=== PATIENT | male | born 1965 | race Caucasian/White ===

== ENCOUNTER 2018-12-26 07:10 | Observation (INO) | payer BC ==
[2018-12-26] MEDS ORDERED: ONDANSETRON HCL INJ/PF 4 MG/2 ML SDV IV ONE (08:16)
[2018-12-26] MEDS ORDERED: NORMAL SALINE 1000 ML 1,000 ML IV ONE (08:16)
[2018-12-26] MEDS ORDERED: MORPHINE SULFATE 10 MG/ML INJ IV ONE (08:16)
[2018-12-26 08:44] LABS: ABSOLUTE EOSINOPHILS # (AUTO) 0.1 10^3/uL (0.0-0.6); ABSOLUTE MONOCYTES (AUTO) 0.6 10^3/uL (0.1-1.4); ABSOLUTE NEUT (AUTO) 9.3 10^3/uL (1.7-8.2); BASOPHILS % (AUTO) 0.4 % (0-2); EOSINOPHILS % (AUTO) 0.5 % (0-6); HEMOGLOBIN 16.2 g/dL (13.5-17.0); LYMPHOCYTES % (AUTO) 9.4 % (13-45); MEAN CORPUSCULAR HEMOGLOBIN 30.5 pg (27.0-33.4); MEAN CORPUSCULAR HGB CONC 34.4 g/dL (32.0-36.0); MEAN CORPUSCULAR VOLUME 89 fl (80-97); PLATELET COUNT 232 10^3/uL (150-450); RED BLOOD COUNT 5.29 10^6/uL (4.35-5.55); RED CELL DISTRIBUTION WIDTH 14.3 % (11.5-14.0); SEGMENTED NEUTROPHILS % (AUTO) 84.7 % (42-78); TOTAL CELLS COUNTED % (AUTO) 100 %
[2018-12-26] MEDS ORDERED: ETOMIDATE INJ/PF 20 MG/10 ML SDV IV ONE ×2 (08:55→09:15)
[2018-12-26] MEDS ORDERED: ONDANSETRON HCL INJ/PF 4 MG/2 ML SDV IV PRN ×2 (09:11→12:20)
[2018-12-26] MEDS ORDERED: MORPHINE SULFATE 10 MG/ML INJ IV PRN (09:11)
[2018-12-26 09:13] LABS: ALANINE AMINOTRANSFERASE 50 U/L (21-72); ALBUMIN 4.5 g/dL (3.5-5.0); ALKALINE PHOSPHATASE 61 U/L (38-126); ANION GAP 11 (5-19); ASPARTATE AMINO TRANSFERASE 20 U/L (17-59); BILIRUBIN,DIRECT 0.3 mg/dL (0.0-0.4); BILIRUBIN,TOTAL 0.8 mg/dL (0.2-1.3); BLOOD UREA NITROGEN 6 mg/dL (7-20); CALCIUM 10.4 mg/dL (8.4-10.2); CARBON DIOXIDE 28 mmol/L (22-30); CHLORIDE 101 mmol/L (98-107); GLUCOSE 118 mg/dL (75-110); POTASSIUM 3.9 mmol/L (3.6-5.0); SODIUM 140.3 mmol/L (137-145); TOTAL PROTEIN 7.4 g/dL (6.3-8.2)
--- NOTE | 2018-12-26 09:23 | Operative Report ---
Nonrecallable Operative Report DATE OF SURGERY: 12/26/18 PREOPERATIVE DIAGNOSIS: Incarcerated umbilical hernia, nausea and vomiting. POSTOPERATIVE DIAGNOSIS: 1. Same as above. 2. Manual reduction successful. OPERATION: Manual reduction of umbilical hernia under moderate sedation. SURGEON: LEA LEVI ANESTHESIA: Moderate Sedation TISSUE REMOVED OR ALTERED: None COMPLICATIONS: None apparent ESTIMATED BLOOD LOSS: None PROCEDURE: After informed consent was obtained from the patient, he was placed in the supin e position. He was attached to all appropriate monitoring devices. The patient was administered supplemental oxygen. Under direct supervision by me, the patient was given 20 mg total of etomidate in 10 mg doses, x2. With manual pressure, the umbilical hernia was reduced back into the abdominal cavity. The patient's heart rate, blood pressure, and saturations remained normal throughout the procedure. At this time the procedure was concluded. Condition: Stable.
--- NOTE | 2018-12-26 09:33 | PDOC H&P ---
History of Present Illness Admission Date/PCP: VINOD MOHAN Patient complains of: incarcerated umbilical hernia, abdominal pain, nausea, and vomiting History of Present Illness: NORMA DILLON JR is a 53 year old male with a 24-hour history of an incar cerated umbilical hernia. The patient reports abdominal pain, nausea, and vomiting. He is a heavy smoker. He reports that while straining on the toilet, his hernia became incarcerated. Since that time, he has had increasing amounts of abdominal pain nausea and vomiting. Patient denies fevers or chills. His pain is rated at 5 out of 10. It is sharp and stabbing. It does not radiate. The patient currently denies chest pain, shortness of breath, blurry vision, orthostasis, headache, hearing difficulty, rash. Past Medical History Cardiac Medical History: Reports: Hypertension Denies: Coronary Artery Disease, Myocardial Infarction Pulmonary Medical History: Denies: Asthma, Bronchitis, Chronic Obstructive Pulmonary Disease (COPD), Pneumonia Neurological Medical History: Denies: Seizures Musculoskeltal Medical History: Denies: Arthritis Hematology: Denies: Anemia Past Surgical History Past Surgical History: Reports: Orthopedic Surgery Social History Smoking Status: Current Every Day Smoker Family History Parental Family History Reviewed: Yes Children Family History Reviewed: Yes Sibling(s) Family History Reviewed.: Yes Medication/Allergy Home Medications: Amlodipine Besylate 10 mg PO DAILY 01/08/16 Atorvastatin Calcium [Lipitor 40 mg Tablet] 40 mg PO QHS 01/08/16 Allergies/Adverse Reactions: Penicillins Allergy (Severe, Verified 12/26/18 07:19) as child Review of Systems Constitutional: ABSENT: chills, fatigue, fever(s) Eyes: ABSENT: visual disturbances Ears: ABSENT: hearing changes Nose, Mouth, and Throat: ABSENT: sore throat Cardiovascular: ABSENT: chest pain Respiratory: ABSENT: cough Gastrointestinal: PRESENT: abdominal pain, bloating, nausea, vomiting. ABSENT: hematemesis, hematochezia, melena Genitourinary: ABSENT: dysuria Musculoskeletal: ABSENT: back pain Integumentary: ABSENT: pruritus, rash Neurological: ABSENT: confusion, convulsions, dizziness Psychiatric: ABSENT: anxiety, depression Endocrine: ABSENT: cold intolerance, heat intolerance Hematologic/Lymphatic: ABSENT: easy bleeding, easy bruising Physical Exam Vital Signs: Temp Pulse Resp BP Pulse Ox 97.9 F 63 12 130/75 H 99 12/26/18 07:18 12/26/18 09:19 12/26/18 09:19 12/26/18 09:19 12/26/18 09:19 Intake & Output 12/25/18 12/26/18 12/27/18 06:59 06:59 06:59 Weight 75.9 kg General appearance: PRESENT: no acute distress, cooperative Head exam: PRESENT: atraumatic, normocephalic Eye exam: PRESENT: EOMI, PERRLA. ABSENT: scleral icterus Mouth exam: PRESENT: moist, neck supple Teeth exam: ABSENT: poor dentation Neck exam: ABSENT: meningismus, tenderness, thyromegaly, tracheal deviation Respiratory exam: PRESENT: clear to auscultation killian, unlabored. ABSENT: chest wall tenderness, tachypnea, wheezes Cardiovascular exam: PRESENT: RRR Pulses: PRESENT: normal radial pulses GI/Abdominal exam: PRESENT: hernia - incarcerated umbilical hernia with mildly erythematous skin. No bruising, bullae, or purple discoloration., tenderness - at umbilical hernia Rectal exam: PRESENT: deferred Musculoskeletal exam: ABSENT: deformity Neurological exam: PRESENT: alert, awake, oriented to person, oriented to place, oriented to time, oriented to situation, CN II-XII grossly intact Psychiatric exam: ABSENT: agitated, anxious, depressed Focused psych exam: ABSENT: delusional Skin exam: PRESENT: erythema - mild periumbilical. ABSENT: cyanosis, jaundice Results Laboratory Results: 12/26/18 08:27 12/26/18 08:27 12/26/18 12/26/18 08:27 08:27 WBC 11.0 H RBC 5.29 Hgb 16.2 Hct 47.0 MCV 89 MCH 30.5 MCHC 34.4 RDW 14.3 H Plt Count 232 Seg Neutrophils % 84.7 H Lymphocytes % 9.4 L Monocytes % 5.0 Eosinophils % 0.5 Basophils % 0.4 Absolute Neutrophils 9.3 H Absolute Lymphocytes 1.0 Absolute Monocytes 0.6 Absolute Eosinophils 0.1 Absolute Basophils 0.0 Sodium 140.3 Potassium 3.9 Chloride 101 Carbon Dioxide 28 Anion Gap 11 BUN 6 L Creatinine 0.69 Est GFR ( Amer) > 60 Est GFR (Non-Af Amer) > 60 Glucose 118 H Calcium 10.4 H Total Bilirubin 0.8 AST 20 ALT 50 Alkaline Phosphatase 61 Total Protein 7.4 Albumin 4.5 Assessment & Plan - Diagnosis (1) Incarcerated umbilical hernia Is this a current diagnosis for this admission?: Yes (2) Nausea & vomiting Qualifiers: Vomiting type: unspecified Vomiting Intractability: intractable Qualified Code(s): R11.2 - Nausea with vomiting, unspecified Is this a current diagnosis for this admission?: Yes - Plan Summary Plan Summary: This is a 53-year-old male with an umbilical hernia. It became incarcerated yesterday and the patient presents today for evaluation. The patient was seen in the emergency department, and the hernia was unable to be reduced. The patient does have abdominal pain at this time, but does not exhibit signs of peritonitis. I will attempt manual reduction of the hernia under moderate sedation. The patient will require repair of the hernia. Timing will be determined after an attempt at manual reduction. This has been discussed at length with the patient and his . They are in agreement with the treatment plan. Risks/benefits discussed, informed consent obtained, and all questions answered.
[2018-12-26] MEDS: DEXTROSE 5%-LACTATED RINGERS 1,000 ML IV PRN ×2 (10:57→15:56)
[2018-12-26] MEDS: CLINDAMYCIN 900 MG/D5W RTU 900 MG/50 ML RTUPB IV PRN ×2 (11:04→11:45)
[2018-12-26] MEDS ORDERED: BUPIVACAINE HCL 0.25 % INJ/PF (2.5 MG/1 ML) 30 ML VIAL ONE (11:05)
[2018-12-26] MEDS ORDERED: MIDAZOLAM 2 MG/2 ML INJ ONE (11:14)
[2018-12-26] MEDS ORDERED: PROPOFOL INJ 200 MG/20 ML VIAL IV ONE (11:15)
[2018-12-26] MEDS ORDERED: HYDROMORPHONE HCL INJ/PF 2 MG/ML AMPULE ONE (11:15)
[2018-12-26 11:30] LABS: APPEARANCE,URINE CLEAR; BILIRUBIN,URINE NEGATIVE (NEGATIVE); COLOR,URINE STRAW; GLUCOSE, URINE NEGATIVE (NEGATIVE); KETONES,URINE 20 mg/dL (NEGATIVE); LEUKOCYTE ESTERASE,URINE NEGATIVE (NEGATIVE); NITRITE,URINE NEGATIVE (NEGATIVE); PROTEIN,URINE NEGATIVE (NEGATIVE); URINE SPECIFIC GRAVITY 1.003; UROBILINOGEN,URINE NEGATIVE mg/dL (<2.0)
[2018-12-26] MEDS ORDERED: PROMETHAZINE HCL INJ 25 MG/1 ML VIAL IV PRN ×2 (12:20)
[2018-12-26] MEDS ORDERED: DIPHENHYDRAMINE HCL 50 MG/ML VIAL IV PRN (12:20)
[2018-12-26] MEDS ORDERED: OXYCODONE-ACETAMINOPHEN 5-325 MG TABLET PO PRN ×2 (12:20)
[2018-12-26] MEDS ORDERED: FENTANYL CITRATE INJ/PF 100 MCG/2 ML AMPUL IV PRN ×3 (12:20)
[2018-12-26] MEDS ORDERED: MEPERIDINE HCL/PF INJ 25 MG/1 ML DISP.SYRIN IV PRN (12:20)
--- NOTE | 2018-12-26 14:06 | Operative Report ---
Nonrecallable Operative Report DATE OF SURGERY: 12/26/18 PREOPERATIVE DIAGNOSIS: incarcerated umbilical hernia POSTOPERATIVE DIAGNOSIS: same OPERATION: laparoscopic repair of incarcerated umbilical hernia with mesh SURGEON: LEA RODRIGUEZ ANESTHESIOLOGY FELLOW: KAY WEST ANESTHESIA: GA TISSUE REMOVED OR ALTERED: none COMPLICATIONS: none apparent ESTIMATED BLOOD LOSS: Minimal PROCEDURE: Drains/Implants: [address] hernia mesh. Procedure in detail: After informed consent was obtained, the patient was brought to the operating room and laid in the supine position. The area of the abdomen was prepped and draped in a normal sterile fashion. A incision was created in the left upper quadrant with a 15 blade scalpel. The 5 mm trocar was then inserted into the abdominal cavity under direct laparoscopic visualization, using the Optiview technique. Once the trocar was within the abdominal cavity, gas insufflation was attached, and pneumoperitoneum was achieved. A 5 mm trocar was placed in the left lower quadrant under direct laparoscopic visualization. The left upper quadrant 5 mm trocar was then removed and replaced with an 11 mm trocar. This was also done under direct laparoscopic visualization. Next a 10 mm, 30 degree camera was used to visualize the hernia defect. There was fat incarcerated within the hernia defect. Using electrocautery and blunt dissection, the fat was reduced from the umbilical hernia defect. Next, the defect was closed using 0 Prolene suture in [id number]-[id number] fashion with the aid of the Maury-Audra device. Once this was completed, an [address] hernia mesh was chosen to adequately cover the defect. 0 Prolene sutures were tied in 4 quadrants. The mesh was inserted into the abdomen. The sutures were then placed in a trans-fascial manner using the Maury-Audra device. This was done in all 4 quadrants. Next the permanent tacking device was used to affix the edges of the mesh to the fascia. Once this was completed, the mesh was found to lie in good place. The 11 mm trocar was removed. The 11 mm trocar defect was closed using 0 Vicryl suture in [id number] fashion, with the aid of the Maury-Audra device. Next, pneumoperitoneum was relieved. The 5 mm left lower quadrant trocar was r emoved. The overlying skin was closed using 4-0 Vicryl Rapide suture in subcuticular fashion. Dressings were placed, and the procedure was concluded. All sponge, instrument, and needle counts were correct x2. Condition: Stable. Kay West PA-C was scrubbed and present for the procedure. She assisted with manipulation of the camera, removal of the trochars, closure of the fascia, and closure of the skin.
[2018-12-26] MEDS ORDERED: GLYCOPYRROLATE 1 MG/5 ML VIAL ONE (14:56)
[2018-12-26] MEDS ORDERED: LIDOCAINE 2% INJ-PF (20 MG/ML) 2 ML AMPUL ONE (14:56)
[2018-12-26] MEDS ORDERED: ONDANSETRON HCL INJ/PF 4 MG/2 ML SDV ONE (14:56)
[2018-12-26] MEDS ORDERED: KETOROLAC TROMETHAMINE 60 MG/2 ML SDV ONE (14:56)
[2018-12-26] MEDS ORDERED: ROCURONIUM BROMIDE INJ 50 MG/5 ML VIAL IV ONE (14:56)
[2018-12-26] MEDS ORDERED: METOCLOPRAMIDE HCL INJ/PF 10 MG/2 ML SDV ONE (14:56)
[2018-12-26] MEDS ORDERED: NEOSTIGMINE METHYLSULFATE 10 MG/10 ML VIAL ONE (14:56)
[2018-12-26] MEDS ORDERED: DEXAMETHASONE SOD PHOSPHATE INJ 4 MG/1 ML VIAL ONE (14:56)
[2018-12-26] MEDS ORDERED: HYDROCODONE/ACETAMINOPHEN 10-325 MG TABLET PO PRN (15:16)
[2018-12-26 18:36] VITALS: BP 109/66
--- NOTE | 2018-12-26 18:55 | PDOC DISCHARGE SUMMARY ---
General - Admit/Disc Date/PCP Admission Date/Primary Care Provider: 12/26/18 09:22 VINOD MOHAN Discharge Date: 12/26/18 - Discharge Diagnosis (1) Incarcerated umbilical hernia Is this a current diagnosis for this admission?: Yes (2) Nausea & vomiting Is this a current diagnosis for this admission?: Yes - Additional Information Resuscitation Status: Full Code Discharge Diet: As Tolerated Discharge Activity: No Lifting Over 10 Pounds Home Medications: Atorvastatin Calcium [Lipitor 40 mg Tablet] 40 mg PO DAILY 01/08/16 Amlodipine Besylate/Benazepril [Amlodipine-Benazepril 10-20 mg] 1 cap PO DAILY 12/26/18 History of Present Illness History of Present Illness: NORMA DILLON JR is a 53 year old male with a 24-hour history of an incarcerated umbilical hernia. The patient reports abdominal pain, nausea, and vomiting. He is a heavy smoker. He reports that while straining on the toilet, his hernia became incarcerated. Since that time, he has had increasing amounts of abdominal pain nausea and vomiting. Patient denies fevers or chills. His pain is rated at 5 out of 10. It is sharp and stabbing. It does not radiate. The patient currently denies chest pain, shortness of breath, blurry vision, orthostasis, headache, hearing difficulty, rash. Hospital Course Hospital Course: The patient was admitted to the hospital, and manual reduction of his incarcerated umbilical hernia was performed under moderate sedation. The patient was subsequently taken to the operating room, in a controlled manner, for laparoscopic umbilical hernia repair. The patient did well from the operation. Began ambulating, tolerating a diet, and his pain was controlled with oral pain medications. By the evening of 12/26/2018, the patient had reached maximal hospital benefit and was fit for discharge. Physical Exam Vital Signs: Temp Pulse Resp BP Pulse Ox 97.6 F 59 L 18 109/66 96 12/26/18 17:55 12/26/18 17:55 12/26/18 17:55 12/26/18 17:55 12/26/18 17:55 Intake & Output 12/25/18 12/26/18 12/27/18 06:59 06:59 06:59 Intake Total 2350 Output Total 10 Balance 2340 Weight 75.9 kg Results Laboratory Results: 12/26/18 08:27 12/26/18 08:27 12/26/18 12/26/18 12/26/18 08:27 08:27 11:00 WBC 11.0 H RBC 5.29 Hgb 16.2 Hct 47.0 MCV 89 MCH 30.5 MCHC 34.4 RDW 14.3 H Plt Count 232 Seg Neutrophils % 84.7 H Lymphocytes % 9.4 L Monocytes % 5.0 Eosinophils % 0.5 Basophils % 0.4 Absolute Neutrophils 9.3 H Absolute Lymphocytes 1.0 Absolute Monocytes 0.6 Absolute Eosinophils 0.1 Absolute Basophils 0.0 Sodium 140.3 Potassium 3.9 Chloride 101 Carbon Dioxide 28 Anion Gap 11 BUN 6 L Creatinine 0.69 Est GFR ( Amer) > 60 Est GFR (Non-Af Amer) > 60 Glucose 118 H Calcium 10.4 H Total Bilirubin 0.8 AST 20 ALT 50 Alkaline Phosphatase 61 Total Protein 7.4 Albumin 4.5 Urine Color STRAW Urine Appearance CLEAR Urine pH 7.0 Ur Specific [place] 1.003 Urine Protein NEGATIVE Urine Glucose (UA) NEGATIVE Urine Ketones 20 H Urine Blood NEGATIVE Urine Nitrite NEGATIVE Ur Leukocyte Esterase NEGATIVE Urine WBC (Auto) 0 Qualifiers - * PATIENT BEING DISCHARGED WITH ANY OF THE FOLLOWING DIAGNOSIS: No Acute Heart Failure - Is this a Heart Failure Patient?: No Plan Discharge Plan: Discharge home. Diet as tolerated. Activity: No lifting greater than 10 pounds x 6 weeks. Follow-up with me in 7 to 10 days. [place] 10/325 mg p.o. every 6 hours as needed for pain. Ibuprofen 800 mg p.o. 3 times daily with meals. Okay to shower in 48 hours. No tub baths or swimming pools x2 weeks. Time Spent: Less than 30 Minutes
[2018-12-27] MEDS ORDERED: AMLODIPINE BESYLATE 10 MG TABLET PO SCH (10:00)
[2018-12-27] MEDS ORDERED: ATORVASTATIN CALCIUM 40 MG TABLET PO SCH (10:00)
[2018-12-27] MEDS ORDERED: (PENDING PHARMACY ID) (Amlodipine Besylate/Benazepril [Amlodipine-Benazepril 10-20 Mg] 1 C PO SCH (10:00)
[2018-12-27] MEDS ORDERED: BENAZEPRIL HCL 20 MG TABLET PO SCH (10:00)
--- NOTE | 2018-12-29 10:03 | ER Document Report ---
Entered by CRISTINA RESENDIZ SCRIBE 12/26/18 0834 Acting as scribe for:JOE EM MD ED General - General Chief Complaint: Abdominal Pain Stated Complaint: ABDOMINAL PAIN,VOMITING Time Seen by Provider: 12/26/18 08:08 Notes: Patient is a 53-year-old male presenting to the emergency department complaining of constipation with associated vomiting. Patient states that his last bowel movement was on Wednesday the . Patient states that last night he began vomiting every hour, he took MiraLAX to try and help the nausea and took enema to help with his constipation. Patient has an allergy to penicillin. TRAVEL OUTSIDE OF THE [place] IN LAST 30 DAYS: No - Related Data Allergies/Adverse Reactions: Penicillins Allergy (Severe, Verified 12/26/18 07:19) as child Past Medical History - General Information source: Patient - Social History Smoking Status: Current Every Day Smoker Cigarette use (# per day): Yes Chew tobacco use (# tins/day): No Frequency of alcohol use: Heavy Drug Abuse: None Family History: Reviewed & Not Pertinent - Past Medical History Cardiac Medical History: Reports: Hx Hypertension Past Surgical History: Reports: Hx Orthopedic Surgery - Left total hip from traumatic injury, Other - 4 different foot surgeries - Immunizations Hx Diphtheria, Pertussis, Tetanus Vaccination: Yes Review of Systems - Review of Systems Constitutional: No symptoms reported EENT: No symptoms reported Cardiovascular: No symptoms reported Respiratory: No symptoms reported Gastrointestinal: See HPI, Vomiting, Constipation Genitourinary: No symptoms reported Male Genitourinary: No symptoms reported Musculoskeletal: No symptoms reported Skin: No symptoms reported Hematologic/Lymphatic: No symptoms reported Neurological/Psychological: No symptoms reported -: Yes All other systems reviewed and negative Physical Exam - Vital signs Vitals: Temp Pulse Resp BP Pulse Ox 97.9 F 63 16 145/83 H 98 12/26/18 07:18 12/26/18 07:18 12/26/18 07:18 12/26/18 07:18 12/26/18 07:18 - Notes Notes: Physical Exam: General: Alert, dry mouth, ketone odor in breath. HEENT: Normocephalic. Atraumatic. PERRL. Extraocular movements intact. Oropharynx clear. Neck: Supple. Non-tender. Respiratory: No respiratory distress. Clear and equal breath sounds bilaterally. Cardiovascular: Regular rate and rhythm. Abdominal: There is an umbilical hernia which is bulging, erythematous, very firm and tender. Attempts at reducing before and after IV morphine, were unsuccessful. Back: Non-tender. No deformity or step off. Extremities: Moves all four extremities. Upper extremities: Normal inspection. Normal ROM. Lower extremities: Normal inspection. No edema. Normal ROM. Neurological: Normal cognition. AAOx4. Normal speech. Psychological: Normal affect. Normal Mood. Skin: Warm. Dry. Normal color. Course - Re-evaluation Re-evalutation: 12/26/18 08:41 Patient was given morphine sulfate 5 mg IV with good pain relief. Another attempt at reducing the hernia was made but that was unsuccessful and very painful to the patient. - Vital Signs Vital signs: Temp Pulse Resp BP Pulse Ox 98.4 F 63 11 L 108/73 95 12/26/18 11:01 12/26/18 09:19 12/26/18 11:01 12/26/18 11:01 12/26/18 11:01 - Laboratory Result Diagrams: 12/26/18 08:27 12/26/18 08:27 Laboratory results interpreted by me: 12/26/18 12/26/18 08:27 08:27 WBC 11.0 H RDW 14.3 H Seg Neutrophils % 84.7 H Lymphocytes % 9.4 L Absolute Neutrophils 9.3 H BUN 6 L Glucose 118 H Calcium 10.4 H - Consults Dr. Rob Time consulted: 08:39 Consulted provider: will come to ER Discharge - Discharge Clinical Impression: Incarcerated umbilical hernia Condition: Stable Disposition: ADMITTED INPATIENT Admitting Provider: Surgicalist Unit Admitted: Surgical Floor Scribe Attestation: 12/26/18 08:49 I personally performed the services described in the documentation, reviewed and edited the documentation which was dictated to the scribe in my presence, and it accurately records my words and actions. I personally performed the services described in the documentation, reviewed and edited the documentation which was dictated to the scribe in my presence, and it accurately records my words and actions.
== END 2018-12-26 19:41 | disposition home or self-care (01) ==
LOC: ER 07:10 → EH 09:22 → INTOOBSV 09:22 → 5 13:57
PROVIDERS: ADMIT Surgery; ATTEND Surgery
PROC: 0WUF4JZ Supplement Abdominal Wall with Synthetic Substitute, Percutaneous Endoscopic Approach (ICD-10-PCS; principal; 2018-12-26 11:45)
DX: K42.0 Umbilical hernia with obstruction, without gangrene (principal); R11.2 Nausea with vomiting, unspecified; I10 Essential (primary) hypertension; Z79.899 Other long term (current) drug therapy; F17.200 Nicotine dependence, unspecified, uncomplicated; Z88.0 Allergy status to penicillin
CPT/HCPCS: 49653; 99285; 96361; 96374; 96375; 36415; 85025; 80053; 81001; 00750; C1781; J2250; J3490 ×4; J1100; J1885; J2765; J2270; J2710; J1170; J2405; J7121; J7030; J2704; 750